=== PATIENT | female | born 1955 | race Caucasian/White ===

== ENCOUNTER 2023-10-11 11:06 | Day surgery (SDC) | payer MEDICARE ==
[~2023-10-11] VITALS: Ht 149.9 cm; Wt 55.8 kg
[~2023-10-11 11:06] MED LIST: ALBU8.5H INH; ASPI81TA26 PO; ATOR1TAB21 PO; D200CAP3 PO; FEXO-157 PO; HYDR-3490 PO; INCR1INH INH; LOSA50TA28 PO; LR 1,000 ML IV SCH; MIDAZOLAM INJ 2MG/2ML VIAL As Ordered ONE; VARE1TAB2 PO; fentaNYL 100 MCG/2 ML INJECTION As Ordered ONE
[2023-10-11] MEDS: LIDOCAINE 1% SDV 5ML VIAL As Ordered ONE (13:40)
[2023-10-11] MEDS: CEFUROXIME 1MG/0.1ML INTRACAMERAL INJ As Ordered ONE (13:48)
[2023-10-11 14:00] VITALS: BP 131/70; TEMP 97.6; O2SAT 98
[2023-10-11] MEDS: FLURBIPROFEN 0.03% OPHTH SOLN 2.5 ML OD SCH (14:21)
[2023-10-11] MEDS: PHENYLEPHRINE 2.5% OPHTH SOL 2ML OD SCH (14:21)
[2023-10-11] MEDS: ATROPINE SULFATE 1% OPHTH SOLN 2ML BTL OD SCH (14:21)
[2023-10-11] MEDS: TETRACAINE 0.5% OPHTH SOLN 4ML OD SCH (14:22)
== END 2023-10-11 14:10 | disposition home or self-care (01) ==
LOC: M SDC 11:06
PROVIDERS: ATTEND Ophthalmology
DX: H25.11 Age-related nuclear cataract, right eye (principal); I10 Essential (primary) hypertension; E78.00 Pure hypercholesterolemia, unspecified; J44.9 Chronic obstructive pulmonary disease, unspecified; Z79.899 Other long term (current) drug therapy; Z79.82 Long term (current) use of aspirin; F17.210 Nicotine dependence, cigarettes, uncomplicated
CPT/HCPCS: 66984; J0697; J2250; J3010; V2632

== ENCOUNTER 2023-11-22 08:24 | Day surgery (SDC) | payer MEDICARE ==
[~2023-11-22] VITALS: Ht 149.9 cm; Wt 57.3 kg
[~2023-11-22 08:24] MED LIST changes: -FEXO-157 PO; +FEXO-63 PO
[2023-11-22] MEDS: ATROPINE SULFATE 1% OPHTH SOLN 2ML BTL OS SCH (09:39)
[2023-11-22] MEDS: PHENYLEPHRINE 2.5% OPHTH SOL 2ML OS SCH (09:39)
[2023-11-22] MEDS: TETRACAINE 0.5% OPHTH SOLN 4ML OS SCH (09:39)
[2023-11-22] MEDS: FLURBIPROFEN 0.03% OPHTH SOLN 2.5 ML OS SCH (09:39)
[2023-11-22] MEDS: LIDOCAINE 1% SDV 5ML VIAL As Ordered ONE (10:48)
[2023-11-22] MEDS: CEFUROXIME 1MG/0.1ML INTRACAMERAL INJ As Ordered ONE (10:49)
[2023-11-22 11:03] VITALS: BP 152/72; TEMP 97.6; O2SAT 98
== END 2023-11-22 11:34 | disposition home or self-care (01) ==
LOC: M SDC 08:24
PROVIDERS: ATTEND Ophthalmology
DX: H25.12 Age-related nuclear cataract, left eye (principal); F17.210 Nicotine dependence, cigarettes, uncomplicated; Z79.899 Other long term (current) drug therapy; Z98.41 Cataract extraction status, right eye
CPT/HCPCS: 66984; J0697; J2250; J3010; V2632

== ENCOUNTER → 2024-11-28 | Outpatient (CLI) | payer MEDICARE ==
[~2024-11-28] MED LIST changes: -LR 1,000 ML IV SCH; -MIDAZOLAM INJ 2MG/2ML VIAL As Ordered ONE; -fentaNYL 100 MCG/2 ML INJECTION As Ordered ONE
== END ==
LOC: M RAD 08:44
PROVIDERS: ATTEND Urology
DX: N13.30 Unspecified hydronephrosis (principal); R05.3 Chronic cough

== ENCOUNTER → 2024-12-28 | Outpatient (CLI) | payer MEDICARE | LOC: M RAD 08:00 | PROVIDERS: ATTEND Urology | DX: N20.1 Calculus of ureter (principal); K57.30 Diverticulosis of large intestine without perforation or abscess without bleeding; M47.815 Spondylosis without myelopathy or radiculopathy, thoracolumbar region; I70.0 Atherosclerosis of aorta ==